=== PATIENT | male | born 1990 | race Caucasian/White ===

== ENCOUNTER 2016-10-30 08:53 | Emergency (ER) | payer SELFPAY ==
[~2016-10-30] VITALS: Ht 182.9 cm; Wt 90.7 kg
--- NOTE | 2016-10-30 08:53 | NUR ---
[id number]: possible overdose on xanax and heroine. nad noted. vss. pt is confused, moves to localized pain. rr even and unlabored. pending md otto.
[2016-10-30] MEDS ORDERED: NALOXONE HCL 0.4 MG/ML AMPUL ONE ×2 (08:55)
[2016-10-30] MEDS ORDERED: NALOXONE HCL 0.4 MG/ML AMPUL IV ONE (09:00)
[2016-10-30] MEDS ORDERED: IV NS 0.9% 1,000 ML BAG IV ONE (09:00)
[2016-10-30] MEDS ORDERED: ONDANSETRON HCL/PF 4 MG/2 ML VIAL IVP ONE (09:00)
[2016-10-30] MEDS ORDERED: ONDANSETRON HCL/PF 4 MG/2 ML VIAL ONE (09:11)
[2016-10-30] MEDS ORDERED: IV NS 0.9% 1,000 ML ONE (09:11)
[2016-10-30 09:24] LABS: BASOPHILS % (AUTO) 0.4 % (0.0-2.0); EOSINOPHILS # (AUTO) 0.3 /CMM (0.0-0.7); HEMATOCRIT 42 % (39-51); HEMOGLOBIN 13.9 g/dL (13.5-17.5); MEAN CORPUSCULAR HEMOGLOBIN 30 PG (26.0-33.0); MEAN CORPUSCULAR HGB CONC 34 g/dl (31.0-36.0); MEAN CORPUSCULAR VOLUME 88 fL (80-96); MONOCYTES # (AUTO) 0.6 /CMM (0.1-1.30); MONOCYTES % (AUTO) 9.6 % (2.0-12.0); NEUTROPHILS # (AUTO) 3.2 /CMM (1.8-8.9); PLATELET COUNT (AUTO) 251 /CMM (150-450); RDW COEFFICIENT OF VARIATION 13.2 (11.5-15.0); RED BLOOD CELL COUNT(AUTO) 4.72 MIL/uL (4.5-6.0); WHITE BLOOD COUNT (AUTO) 6.1 K/uL (4.3-11.0)
[2016-10-30 09:37] LABS: CALCIUM, SERUM 8.8 mg/dL (8.5-10.1); CREATININE 0.9 mg/dL (0.6-1.3); POTASSIUM 4.3 mmol/L (3.5-5.1)
--- NOTE | 2016-10-30 14:36 | NUR ---
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
[2016-10-30 15:03] VITALS: BP 140/81
--- NOTE | 2016-10-30 15:38 | NUR ---
Patient discharged to home in stable condition. Written and verbal after care instructions given. Patient verbalizes understanding of instruction. ambulatory with steady gait. patient aao x4, vss. discharge paperwork given. no further complaints. IV removed. Catheter intact and site benign. Pressure and 4x4 applied to site. No bleeding noted.
== END 2016-10-30 15:39 | disposition home or self-care (01) ==
LOC: ER 08:53
DX: R41.82 Altered mental status, unspecified (principal); F41.9 Anxiety disorder, unspecified; F43.10 Post-traumatic stress disorder, unspecified; Z88.6 Allergy status to analgesic agent
CPT/HCPCS: 36415; 80048-TC; 85025-TC; A4606; J2310; J2405; J7030; Z7610